=== PATIENT | male | born 1960 | race Caucasian/White ===

== ENCOUNTER 2020-11-23 15:51 | Emergency (ER) | payer MEDICARE ==
[2020-11-23] MEDS ORDERED: CYCLOBENZAPRINE10 MG PO (18:21)
== END 2020-11-23 18:40 | disposition home or self-care (01) ==
LOC: FER 15:51
DX: S31.112A Laceration without foreign body of abdominal wall, epigastric region without penetration into peritoneal cavity, initial encounter (principal); S70.12XA Contusion of left thigh, initial encounter; I10 Essential (primary) hypertension; Z23 Encounter for immunization; Z88.5 Allergy status to narcotic agent; W29.3XXA Contact with powered garden and outdoor hand tools and machinery, initial encounter; W11.XXXA Fall on and from ladder, initial encounter; Y92.009 Unspecified place in unspecified non-institutional (private) residence as the place of occurrence of the external cause
CPT/HCPCS: 70450; 72125; 72128; 72131; 73502; 73552; 90471; 90715

== ENCOUNTER → 2021-12-07 | Day surgery (SDC) | payer MEDICARE ==
[~2021-12-07] VITALS: Ht 177.8 cm; Wt 98.4 kg
[~2021-12-07] MED LIST: ASPIRIN EC81 MG PO; ATORVASTATIN CA40 MG PO; BREO ELLIPTA 11 EACH INH; BUPRENORPHINE HC8 MG SL; BUPROPION XL150 MG PO; CYCLOBENZAPRINE10 MG PO; ISOSORBIDE MONO30 MG PO; LISINOPRIL5 MG PO; LOPRESSOR25 MG PO; METFORMIN HCL500 M3 PO; TRAZODONE 100M100 MG PO; VENTOLIN HFA18 GM INH
== END | disposition home or self-care (01) ==
LOC: FAS 08:59
DX: K62.5 Hemorrhage of anus and rectum (principal); K59.09 Other constipation; K63.89 Other specified diseases of intestine; D12.4 Benign neoplasm of descending colon; D12.3 Benign neoplasm of transverse colon; D12.8 Benign neoplasm of rectum; I25.2 Old myocardial infarction; F17.200 Nicotine dependence, unspecified, uncomplicated; Z80.0 Family history of malignant neoplasm of digestive organs; Z86.010 Personal history of colon polyps; Z95.5 Presence of coronary angioplasty implant and graft; Z79.01 Long term (current) use of anticoagulants; Z79.82 Long term (current) use of aspirin
CPT/HCPCS: J2704; J7120